=== PATIENT | female | born 1950 | race Caucasian/White ===

== ENCOUNTER 2021-05-08 12:58 | Outpatient (CLI) | payer MEDICARE | END 2021-05-08 23:59 | disposition home or self-care (01) | LOC: LAB 12:58 | PROVIDERS: ATTEND Psychiatry & Neurology Psychiatry | DX: F33.2 Major depressive disorder, recurrent severe without psychotic features (principal) | CPT/HCPCS: 36415 ==

== ENCOUNTER 2021-06-23 15:12 | Outpatient (CLI) | payer MEDICARE | END 2021-06-23 23:59 | disposition home or self-care (01) | LOC: LAB 15:12 | PROVIDERS: ATTEND Internal Medicine | DX: F33.2 Major depressive disorder, recurrent severe without psychotic features (principal) | CPT/HCPCS: 36415; 82306 ==

== ENCOUNTER 2022-05-22 14:37 | Outpatient (CLI) | payer MEDICARE ==
[2022-05-22 15:41] LABS: THYROID STIMULATING HORMONE 1.927 mIU/mL (0.358-3.740)
[2022-05-25 14:06] LABS: LAMOTRIGINE/LAMICTAL 5.3 ug/mL (2.0-20.0)
== END 2022-05-22 23:59 | disposition home or self-care (01) ==
LOC: LAB 14:37
PROVIDERS: ATTEND Psychiatry & Neurology Psychiatry
DX: R53.83 Other fatigue (principal); F32.9 Major depressive disorder, single episode, unspecified
CPT/HCPCS: 36415; 80164; 82306; 82746; 84443; 84450; 84460